=== PATIENT | male | born 1935 | race Caucasian/White ===

== ENCOUNTER → 2017-06-21 | Outpatient (CLI) | payer MEDICARE, BC | END | disposition disaster alternative care site (69) | LOC: GAIR 13:50 | DX: I95.9 Hypotension, unspecified (principal); I48.2 Chronic atrial fibrillation; J44.9 Chronic obstructive pulmonary disease, unspecified; E11.9 Type 2 diabetes mellitus without complications; N18.6 End stage renal disease; I50.9 Heart failure, unspecified; M54.5 Low back pain; R60.9 Edema, unspecified; M79.662 Pain in left lower leg; M79.661 Pain in right lower leg; R58 Hemorrhage, not elsewhere classified; R11.0 Nausea; R42 Dizziness and giddiness; Z88.8 Allergy status to other drugs, medicaments and biological substances; Z79.82 Long term (current) use of aspirin; Z79.84 Long term (current) use of oral hypoglycemic drugs; Z79.899 Other long term (current) drug therapy; Z79.891 Long term (current) use of opiate analgesic | CPT/HCPCS: A0422; A0431; A0436; J2405; J3010; J7050; P9016 ==